=== PATIENT | male | born 1990 | race African-American/Black ===

== ENCOUNTER 2017-07-17 10:31 | Emergency (ER) | payer SELFPAY ==
[~2017-07-17] VITALS: Ht 175.3 cm; Wt 82.4 kg
[~2017-07-17 10:31] MED LIST: CHLO.12%30 SSP; CLIN150 PO; IBUP800T23 PO
[2017-07-17 10:39] VITALS: BP 126/69; PULSE 84; RESP 16; TEMP 99; O2SAT 100
--- NOTE | 2017-07-17 11:39 | PD ---
HPI Chief Complaint: Dizziness Time Seen by Provider: 11:39 Travel History International Travel<30 days: No Contact w/Intl Traveler<30days: No Traveled to known affect area: No History of Present Illness HPI 27-year-old male came to the emergency room with history of not feeling good, dizzy, fever but no recorded temperature, nausea and loss of appetite for past 2 days. His girlfriend is doing most of the talking and says that it is since he ate something outside. No history of diarrhea. Vital signs were stable. Patient tells me that he sometimes feels palpitations but he has history of palpitations and takes propranolol as needed for that. He took propranolol yesterday. Today his heart rate and blood pressure within normal limits. [facility] Past Medical History Narrative Medical List of his past medical, surgical, social and family history is reviewed from the nursing notes. Social History Alcohol Use: No Tobacco Use: No Substance Use: No ( ) Allergies-Medications (Allergen,Severity, Reaction): Coded Allergies: No Known Allergies (Unverified Adverse Reaction, Unknown, 07/17/17) Comments No known drug allergies. Reported Meds & Prescriptions Reported Meds & Active Scripts Active Reported Propranolol (Propranolol HCl) 10 Mg Tab 10 Mg PO Q12HR Narrative Medication List of her home medications reviewed from the nursing note. Review of Systems Except as stated in HPI: all other systems reviewed are Neg Gastrointestinal: Positive: Nausea Neurologic: Positive: Weakness Physical Exam Narrative GENERAL: Awake, alert, no obvious distress SKIN: Focused skin assessment warm/dry. HEAD: Atraumatic. Normocephalic. EYES: Pupils equal and round. No scleral icterus. No injection or drainage. ENT: No nasal bleeding or discharge. Mucous membranes pink and moist. NECK: Trachea midline. No JVD. CARDIOVASCULAR: Regular rate and rhythm. No murmur appreciated. RESPIRATORY: No accessory muscle use. Clear to auscultation. Breath sounds equal bilaterally. GASTROINTESTINAL: Abdomen soft, non-tender, nondistended. Hepatic and splenic margins not palpable. MUSCULOSKELETAL: No obvious deformities. No clubbing. No cyanosis. No edema. NEUROLOGICAL: Awake and alert. No obvious cranial nerve deficits. Motor grossly within normal limits. Normal speech. PSYCHIATRIC: Appropriate mood and affect; insight and judgment normal. Data Data Last Documented VS Vital Signs Date Time Temp Pulse Resp B/P (MAP) Pulse Ox O2 Delivery O2 Flow Rate FiO2 07/17/17 12:49 07/17/17 11:57 71 16 76 16 76 16 07/17/17 10:39 99.0 100 Orders Orders Electrocardiogram (07/17/17 ) Orthostatic Vital Signs (07/17/17 11:46) Ed Discharge Order (07/17/17 12:04) MDM Medical Decision Making Medical Screen Exam Complete: Yes Emergency Medical Condition: Yes Medical Record Reviewed: Yes Interpretation(s) 12-lead EKG was reviewed by me. Normal sinus rhythm, normal axis, nonspecific ST-T wave changes. Heart rate of 71 bpm. Differential Diagnosis Viral illness, dehydration Narrative Course 12:02 PM orthostatic vital signs were done and they are within normal limits. I 'm comfortable discharging this patient home. Procedures EKG Prior to Arrival: No Diagnosis Primary Impression: Viral illness Referrals: Primary Care Physician 3 days Additional Instructions: Drink lots of fluids to stay hydrated. Tylenol/Motrin/ibuprofen/Advil for fever or pain as needed. Return to the ER if the condition worsens or any other new concerns. Med/Other Pt SpecificInfo: No Change to Meds Disposition: 01 DISCHARGE HOME Condition: Stable Poppy Harding MD Jul 17, 2017 11:39
[2017-07-17] MEDS ORDERED: PROP10TA6 PO (11:48)
[2017-07-17 11:57] VITALS: BP_SYST 119; BP_SYST 122; BP_SYST 123; BP_DIAS 76; BP_DIAS 77; RESP 16
--- NOTE | 2017-07-18 13:16 | EKG ---
Date Performed: 07/17/2017 Time Performed: 11:52:55 PTAGE: 27 years EKG: Sinus rhythm Within normal limits PREVIOUS TRACING : 08/10/2013 19.08 Since previous tracing, no significant change. DOCTOR: Tanner Mendoza Interpretating Date/Time 07/18/2017 13:15:35
== END 2017-07-17 12:51 | disposition home or self-care (01) ==
LOC: PHED 10:31
DX: B34.9 Viral infection, unspecified (principal); R42 Dizziness and giddiness; R50.9 Fever, unspecified; R11.0 Nausea; R63.0 Anorexia; R53.81 Other malaise
CPT/HCPCS: 93005; 99283